=== PATIENT | female | born 1990 ===

== ENCOUNTER → 2021-10-06 | Outpatient (CLI) | payer OTHER ==
[~2021-10-06] MED LIST: DOLOGESIC CAPLE1 TAB; LORATADINE1 GM; OSEL75CA PO; TUSSIONEX PENNKI5 ML PO
== END | disposition home or self-care (01) ==
LOC: PRENATAL 14:43
PROVIDERS: ATTEND Obstetrics & Gynecology Maternal & Fetal Medicine
DX: O35.0XX1 Maternal care for (suspected) central nervous system malformation in fetus, fetus 1 (principal); O35.3XX1 Maternal care for (suspected) damage to fetus from viral disease in mother, fetus 1; O98.512 Other viral diseases complicating pregnancy, second trimester; Z36.89 Encounter for other specified antenatal screening; Z3A.24 24 weeks gestation of pregnancy